=== PATIENT | female | born 1985 | race Hispanic/Latino ===

== ENCOUNTER 2019-01-25 01:48 | Outpatient (CLI) | payer BC, MEDICAID ==
[2019-01-25 03:05] VITALS: BP 111/70
== END 2019-01-25 03:48 | disposition home or self-care (01) ==
LOC: TRG 01:48
PROVIDERS: ATTEND Obstetrics & Gynecology
DX: O47.1 False labor at or after 37 completed weeks of gestation (principal); O99.513 Diseases of the respiratory system complicating pregnancy, third trimester; J45.909 Unspecified asthma, uncomplicated; Z3A.39 39 weeks gestation of pregnancy
CPT/HCPCS: 59025

== ENCOUNTER 2019-02-03 10:47 | Inpatient (IN) | payer BC, MEDICAID ==
--- NOTE | 2019-02-03 10:59 | History and Physical Report ---
History of Present Illness Date of examination: 02/03/19 (5cm in office) Date of admission: 02/03/19 10:47 History of present illness: EDC Confirmation: 01/28/2019 Gestational Age: 11 4/7 weeks Past History : 3 Premature Births: 0 Para: 2 Mult. Births: 0 Prev : 0 Elect. Ab: 0 Spont. Ab: 0 Ectopics: 0 Past Medical History: Reviewed history from 02/11/2011 and no changes required: Asthma Past Surgical History: Reviewed history from 02/11/2011 and no changes required: negative Past Medical History Abnormal PAP: negative ANNIE Exposure: negative Infertility: negative Uterine Anomaly: negative Uterine Surgery (not C/S): negative Other Gynecologic Problems: negative Social Hx: Patient is Smoking History: Patient has never smoked. Infection History Hx of STD: none HIV Risk Eval: low risk Hepatitis B Risk Eval: low risk Personal hx. of genital herpes: no Partner hx. of genital herpes: no Rash, Viral, or Febrile illness since last LMP? no Varicella/Chicken Pox Status: Previous Disease TB Risk: no Genetic History Congenital Heart Defect: Mom: no Dad: no Shanda Disease: Mom: no Dad: no Thalassemia Mom: no Dad: no Neural Tube Defect Mom: no Dad: no Down's Syndrome Mom: no Dad: no Niels-Sachs Mom: no Dad: no Sickle Cell Disease/Trait Mom: no Dad: no Hemophilia Mom: no Dad: no Muscular Dystrophy Mom: no Dad: no Cystic Fibrosis Mom: no Dad: no [place] Chorea Mom: no Dad: no Mental Retardation Mom: no Dad: no Fragile X Mom: no Dad: no Other Genetic/Chromosomal Disorder Mom: no Dad: no Child w/other defect Mom: no Dad: no Enviromental Exposures Xray Exposure: no Medication, drug, or alcohol use since LMP: no Chemical/Other Exposure: no Exposure to Cat Liter: no Hx of Parvovirus (Fifth Disease): no Occupational Exposure to Children: none Active Medications (reviewed today): PNV () Current Allergies (reviewed today): * NITROUS (Critical) Past History - Obstetrical History Expected Date of Delivery: 01/28/19 Actual Gestation: 40 Week(s) 6 Day(s) : 3 Para: 2 Hx # Term Pregnancies: 2 Number of Pregnancies: 0 Spontaneous Abortions: 0 Induced : 0 Number of Living Children: 2 Medications and Allergies Allergies Allergy/AdvReac Type Severity Reaction Status Date / Time nitrous oxide Allergy Vomiting Verified 02/03/19 11:52 Home Medications Medication Instructions Recorded Confirmed Last Taken Type Lidocain2.5%/Prilocai2.5% [Emla] 5 gm TP PRN #1 tube 11/26/15 Unknown Rx Ibuprofen [Motrin 800 MG tab] 800 mg PO TID PRN #30 tablet 11/27/15 Unknown Rx - Physical Exam Breasts: Positive: deferred Cardiovascular: Regular rate, Normal S1, Normal S2 Lungs: Positive: Clear to auscultation, Normal air movement Abdomen: Positive: normal appearance, soft, normal bowel sounds. Negative: distention, tenderness Genitourinary (Female): Positive: normal external genitalia, normal perenium Vulva: both: normal Vagina: Positive: normal moisture. Negative: discharge Cervix: Negative: lesion, discharge Uterus: Positive: normal size, normal contour Adnexa: both: normal Anus/Rectum: Positive: normal perianal skin, heme negative. Negative: rectal mass, hemorrhoids Extremities: Positive: normal Deep Tendon Reflex Grade: Normal +2 - Obstetrical FHR: category 1 Uterine Contraction Monitor Mode: External Cervical Dilatation: 5 (in office by CLARICE) Cervical Effacement Percentage: 70 station: -1 Results Result Diagrams: 02/03/19 12:13 All other labs normal. GBS Negative HBsAg Screen Negative Negative *1 RPR Non Reactive Non Reactive *2 Rubella Antibodies, IgG [L] <0.90 index Immune >0.99 *3 Non-immune <0.90 Equivocal 0.90 - 0.99 Immune >0.99 ABO Grouping O *4 Rh Factor Positive *5 Please note: Prior records for this patient's ABO / Rh type are not available for additional verification. Antibody Screen Negative Negative *6 WBC 6.6 x10E3/uL 3.4-10.8 *7 RBC 3.85 x10E6/uL 3.77-5.28 *8 Hemoglobin 11.7 g/dL 11.1-15.9 *9 Hematocrit 35.2 % 34.0-46.6 *10 MCV 91 fL 79-97 *11 MCH 30.4 pg 26.6-33.0 *12 MCHC 33.2 g/dL 31.5-35.7 *13 RDW 13.2 % 12.3-15.4 *14 Platelets 241 x10E3/uL 150-379 *15 Neutrophils 63 % Not Estab. *16 Lymphs 23 % Not Estab. *17 Monocytes 5 % Not Estab. *18 Eos 8 % Not Estab. *19 Basos 1 % Not Estab. *20 ! Immature Cells <No Reported Value> *21 Neutrophils (Absolute) 4.2 x10E3/uL 1.4-7.0 *22 Lymphs (Absolute) 1.5 x10E3/uL 0.7-3.1 *23 Monocytes(Absolute) 0.3 x10E3/uL 0.1-0.9 *24 Eos (Absolute) [H] 0.5 x10E3/uL 0.0-0.4 *25 Baso (Absolute) 0.0 x10E3/uL 0.0-0.2 *26 ! Immature Granulocytes 0 % Not Estab. *27 ! Immature Grans (Abs) 0.0 x10E3/uL 0.0-0.1 *28 ! NRBC <No Reported Value> *29 Hematology Comments: <No Reported Value> *30 Tests: (2) AFP Tetra ([id number]) ! Results Report *31 ! Test Results: *Screen Negative* *32 ! . Tests: (3) Panel 577685 ([id number]) HIV Screen 4th Generation wRfx Non Reactive Non Reactive *55 Tests: (4) HCV Ab w/Rflx to Verification ([id number]) ! HCV Ab <0.1 s/co ratio 0.0-0.9 *56 Tests: (5) Comment: ([id number]) ! Comment: SPRCS *57 Non reactive HCV antibody screen is consistent with no HCV infection, unless recent infection is suspected or other evidence exists to indicate HCV infection. Tests: (6) Carbon Dioxide, Total ([id number]) Carbon Dioxide, Total [L] 19 mmol/L 20-29 *58 Tests: (7) Urine Culture, Routine ([id number]) Urine Culture, Routine Final report *59 Tests: (8) Result ([id number]) ! Result 1 No growth *60 Assessment and Plan 33yo @ 40w in active labor GBS negative Orders in EMR
[2019-02-03] MEDS ORDERED: PITOCin/NS 30 UNIT/500ML 30 UNITS/500 ML BAG IV SCH (11:00)
[2019-02-03] MEDS ORDERED: SUBLIMAZE IV PRN (11:00)
[2019-02-03] MEDS ORDERED: BRETHINE SUB-Q PRN (11:00)
[2019-02-03] MEDS ORDERED: PITOCin/NS 20 UNIT/1000ML DRIP 20 UNITS/1,000 ML BAG IV SCH (11:00)
[2019-02-03] MEDS ORDERED: LACTATED RINGERS 1,000 ML IV SCH (11:00)
[2019-02-03] MEDS ORDERED: MINERAL OIL PO PRN (11:00)
[2019-02-03] MEDS ORDERED: ZOFRAN IV PRN (11:00)
[2019-02-03] MEDS ORDERED: XYLOCAINE 2% INFILTRATI NR (11:00)
[2019-02-03 12:35] LABS: Hemoglobin 11.4 gm/dl (10.1-14.3); Mean Corpuscular HGB Conc 34 % (30-34); Mean Corpuscular Volume 88 fl (79-97); Platelet Count 212 K/mm3 (140-440); Red Blood Count 3.85 M/mm3 (3.65-5.03); Red Cell Distribution Width 13.3 % (13.2-15.2)
[2019-02-03] MEDS ORDERED: TYLENOL PO PRN (16:29)
[2019-02-03] MEDS ORDERED: TUCKS PAD TP PRN (16:29)
[2019-02-03] MEDS ORDERED: BENADRYL PO PRN (16:29)
[2019-02-03] MEDS ORDERED: MILK OF MAGNESIA PO PRN (16:29)
[2019-02-03] MEDS ORDERED: LANSINOH TP PRN (16:29)
[2019-02-03] MEDS ORDERED: DULCOLAX PR PRN (16:29)
[2019-02-03] MEDS ORDERED: PHENERGAN PO PRN (16:29)
--- NOTE | 2019-02-03 16:35 | Procedure Note ---
OB Delivery Note - Delivery Date of Delivery: 02/03/19 Auditing Manager: ALBERTA VARNER Estimated blood loss: 300cc - Vaginal Delivery presentation: vertex Delivery position: OA Intrapartum events: none Delivery induction: none Delivery augmentation: rupture of membranes, pitocin Delivery monitor: internal FHT, internal uterine Route of delivery: Delivery placenta: spontaneous Delivery cord: 3 umbilical vessels Delivery laceration: 1st degree (pt declined repair) Anesthesia: intravenous Delivery comments: live born male over intact perineum Baby to mom's abdomen skin to skin Cord blood obtained Placenta and membrane delivered complete and intact, 3 vessel cord. Pit IVFs 8/9, EBL 300, Wgt 8-12 Mom and baby remain LDR stable. - Infant A at 1 minute: 8 at 5 minutes: 9 Infant Gender: Male (wgt 8-12)
[2019-02-03] MEDS ORDERED: SODIUM CHLORIDE FLUSH SYRINGE 10 ML IV NR (17:00)
[2019-02-03] MEDS ORDERED: IBUPROFEN PO SCH (17:00)
[2019-02-03] MEDS: IBUPROFEN PO SCH (18:09)
[2019-02-04] MEDS: IBUPROFEN PO SCH ×3 (01:37→17:04)
[2019-02-04 05:21] LABS: Hematocrit 30.3 % (30.3-42.9); Hemoglobin 10.1 gm/dl (10.1-14.3)
[2019-02-04] MEDS ORDERED: M-M-R II VACCINE SUB-Q ONE (06:00)
[2019-02-04] MEDS ORDERED: BOOSTRIX IM ONE (06:00)
--- NOTE | 2019-02-04 08:40 | Discharge Summary ---
Providers - Providers Date of Admission: 02/03/19 10:47 Date of discharge: 02/04/19 (patient desires discharge today) Attending physician: BECKY PARRA Primary care physician: SERA KABA Hospitalization Reason for admission: labor Condition: Good Pertinent studies: post delivery H&H 10.11/17.3 Procedures: Hospital course: uncomplicated and course Disposition: DC-01 TO HOME OR SELFCARE Core Measure Documentation - Palliative Care Palliative Care/ Comfort Measures: Not Applicable - Core Measures Any of the following diagnoses?: none Exam - Constitutional Vitals: Temp Pulse Resp BP Pulse Ox -97.8 F L 82 18 116/63 97 02/04/19 05:00 02/04/19 05:00 02/04/19 05:00 02/04/19 05:00 02/04/19 05:00 General appearance: Present: no acute distress, well-nourished - EENT Eyes: Present: PERRL ENT: hearing intact, clear oral mucosa - Neck Neck: Present: supple, normal ROM - Respiratory Respiratory effort: normal Respiratory: bilateral: CTA - Cardiovascular Rhythm: regular Heart Sounds: Present: S1 & S2. Absent: rub, click - Extremities Extremities: pulses symmetrical, No edema Peripheral Pulses: within normal limits - Abdominal General gastrointestinal: Present: soft, non-tender, non-distended, normal bowel sounds Female genitourinary: Present: normal - Integumentary Integumentary: Present: clear, warm, dry - Musculoskeletal Musculoskeletal: gait normal, strength equal bilaterally - Psychiatric Psychiatric: appropriate mood/affect, intact judgment & insight - Neurologic Neurologic: CNII-XII intact, moves all extremities - Additional findings Additional findings: Fundus firm, ML, U/1. Vaginal bleeding is scant. Patient reports pain is well controlled with motrin. Reprorts is going well. VSSAF. Patient desires discharge today. May d/c home 24 hours post delivery pending VS and assessments WNL prior to that time. F/u PPV 4 weeks. Plan Diet: regular Forms: [facility] Discharge Summary, Discharge Signature Page
[2019-02-04 19:15] VITALS: BP 115/68
== END 2019-02-04 20:52 | disposition home or self-care (01) | DRG 807 ==
LOC: LD 10:47 → OB 18:06
PROVIDERS: ADMIT Obstetrics & Gynecology; ATTEND Obstetrics & Gynecology
PROC: 10E0XZZ Delivery of Products of Conception, External Approach (ICD-10-PCS; principal; 2019-02-03)
PROC: 3E0234Z Introduction of Serum, Toxoid and Vaccine into Muscle, Percutaneous Approach (ICD-10-PCS; 2019-02-04)
DX: O99.52 Diseases of the respiratory system complicating childbirth (principal); Z37.0 Single live birth; J45.909 Unspecified asthma, uncomplicated; O70.0 First degree perineal laceration during delivery; Z3A.40 40 weeks gestation of pregnancy; Z79.899 Other long term (current) drug therapy; Z23 Encounter for immunization
CPT/HCPCS: 36415; 85014; 85018; 85027; 86592; 86850; 86900; 86901; G0378; J2590; J3010; J7120